=== PATIENT | male | born 1995 | race Caucasian/White ===

== ENCOUNTER 2017-07-01 00:45 | Emergency (ER) | payer OTHER ==
[2017-07-01] MEDS ORDERED: HYDROmorphone 2 MG/ML SDV IVPUSH ONE ×2 (00:58→01:22)
[2017-07-01] MEDS ORDERED: Ondansetron 4 MG/2 ML SDV IVPUSH ONE (00:59)
[2017-07-01] MEDS ORDERED: Diphtheria,Pertussis(Acell),Tetanus Vaccine 0.5 ML SDV IM ONE (01:10)
--- NOTE | 2017-07-01 01:13 | EDM.PDOC ---
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 , L hand caught between 2 metal plates, injured his L index and middle fingers last Td uncertain, believes he got all his childhood vaccines R handed pain down to 6/10 after Dilaudid 1 mg IV and Zofran 4 mg IV, given another 1 mg Dilaudid IV on return from radiology Adacel given - Related Data Allergies Allergy/AdvReac Type Severity Reaction Status Date / Time No Known Allergies Allergy Verified 07/01/17 00:56 Home Meds: Home Meds NK [No Known Home Meds] 07/01/17 [History] Review of Systems - Review of Systems Review Of Systems: See Below Constitutional: Reports: No Symptoms Eyes: Reports: No Symptoms Ears: Reports: No Symptoms Nose: Reports: No Symptoms Mouth/Throat: Reports: No Symptoms Respiratory: Reports: No Symptoms Cardiovascular: Reports: No Symptoms GI/Abdominal: Reports: No Symptoms Genitourinary: Reports: No Symptoms Musculoskeletal: Reports: Hand Pain Skin: Reports: No Symptoms Neurological: Reports: No Symptoms Psychiatric: Reports: No Symptoms ED EXAM, GENERAL - Physical Exam Exam: See Below Exam Limited By: No Limitations General Appearance: Alert, WD/WN, Moderate Distress Head: Atraumatic, Normocephalic Extremities: Other (XR with loss of bone tips of distal phalanges at L index and middle fingers, there is loss of both nails and distal soft tissue, more extensive loss of tissue at index finger with length of distal phalange visible ventrally, soft tissue injury crosses DIP on both fingers, there may be enough soft tissue present on middle finger to preserve the distal phalange) Course - Vital Signs Last Recorded V/S: Last Vital Signs Temp 36.3 C 07/01/17 00:45 Pulse 113 H 07/01/17 00:45 Resp 17 07/01/17 00:45 BP 148/82 H 07/01/17 00:45 Pulse Ox 100 07/01/17 00:45 - Orders/Labs/Meds Meds: Medications Discontinued Medications Generic Name Dose Route Start Last Admin Trade Name Freq PRN Reason Stop Dose Admin Hydromorphone HCl 1 mg 07/01/17 00:58 Dilaudid IVPUSH 07/01/17 00:59 ONETIME ONE Ondansetron HCl 4 mg 07/01/17 00:59 Zofran IVPUSH 07/01/17 01:00 ONETIME ONE - Re-Assessments/Exams Free Text/Narrative Re-Assessment/Exam: 07/01/17 01:44 d/w Dr Rutherford, hand surgeon at [facility], who accepted pt in transfer. He requested pt be admitted to Dr Garnett hospitalist with plan for surgery later this AM. Departure - Departure Time of Disposition: 01:45 Disposition: DC/Tfer to Acute Hospital 02 Clinical Impression: Crushing injury of finger of left hand, Fx phalanges, hand-open, Degloving injury of finger - Discharge Information Referrals: PCP,None [Primary Care Provider] -
--- NOTE | 2017-07-02 10:52 | CR ---
INDICATION: Caught fingers between two metal plates and a press. LEFT FINGERS: Four images of the left fingers were obtained and revealed evidence of soft tissue avulsion of the tips of the second and third fingers with likely avulsion fractured fragments removed from the ungual fernando along the medial aspects of the ungual fernando of those fingers. Additionally, there appears to be an oblique fracture, undisplaced, through the distal metaphysis of the middle phalanx of the second digit. No other bone or joint abnormality was identified. MTDD
== END 2017-07-01 02:23 ==
LOC: FB.ED 00:45
DX: S67.191A Crushing injury of left index finger, initial encounter (principal); S67.193A Crushing injury of left middle finger, initial encounter; S62.621B Displaced fracture of middle phalanx of left index finger, initial encounter for open fracture; W23.0XXA Caught, crushed, jammed, or pinched between moving objects, initial encounter; Y99.0 Civilian activity done for income or pay
CPT/HCPCS: 73140; 90471; 90715; 96374; 96375; 99283; J1170; J2405; 90472